=== PATIENT | female | born 1960 | race Caucasian/White ===

== ENCOUNTER → 2018-04-20 10:05 | Outpatient (CLI) | payer BC, SELFPAY ==
--- NOTE | 2018-04-20 | DI.MG.S_ITS ---
BILATERAL DIGITAL SCREENING MAMMOGRAM 3D/2D WITH CAD: 04/20/2018 CLINICAL: Routine screening. Comparison is made to exams dated: 08/25/2016 mammogram, 12/25/2014 mammogram, and 04/07/2008 mammogram - [facility]. The tissue of both breasts is heterogeneously dense. This may lower the sensitivity of mammography. Current study was also evaluated with a Computer Aided Detection (CAD) system. There is an irregular equal density asymmetry with an indistinct margin in the left breast at 6 o'clock posterior depth. No other significant masses, calcifications, or other findings are seen in either breast. IMPRESSION: INCOMPLETE: NEEDS ADDITIONAL IMAGING EVALUATION The irregular equal density asymmetry in the left breast is indeterminate. Mediolateral and spot compression views as well as additional views with possible ultrasound are recommended. This exam was interpreted at Station ID: [id number]. NOTE: For mammograms, a report in lay terms will be sent to the patient. Approximately 15% of breast malignancies will not be visualized mammographically. In the management of a palpable breast mass, a negative mammogram must not discourage biopsy of a clinically suspicious lesion. Electronically Signed By: Ventura cardenas/con:04/20/2018 12:46:13 letter sent: Additional Imaging Needed ACR BI-RADS Category 0: Incomplete 3340F
== END ==
DX: Z12.31 Encounter for screening mammogram for malignant neoplasm of breast (principal)
CPT/HCPCS: 77063; 77067

== ENCOUNTER 2018-05-09 09:10 | Emergency (ER) | payer BC, SELFPAY ==
[2018-05-09 09:17] VITALS: BMI 27.4
[2018-05-09 09:26] VITALS: BP 137/82; PULSE 74; RESP 16; TEMP 37.3; O2SAT 99; BMI 27.4
--- NOTE | 2018-05-09 09:31 | DI.RAD.S_ITS ---
PROCEDURE: XR KNEE RT 3V INDICATIONS: twisting fall TECHNIQUE: 3 views of the knee were acquired. COMPARISON: None. FINDINGS: Bones: No fractures or dislocations. No suspicious bony lesions. No patella subluxation. Mild tricompartment osteoarthritis is seen. Soft tissues: Small suprapatellar joint effusion is seen.. No suspicious soft tissue calcifications. IMPRESSION: Mild tricompartment osteoarthritis and small suprapatellar joint effusion. No gross acute right knee fracture or dislocation. Dictated by: Leo Peck M.D. on 05/09/2018 at 9:57 Approved by: Leo Peck M.D. on 05/09/2018 at 9:58
--- NOTE | 2018-05-09 09:47 | ED_ITS ---
HPI - Extremity Injury (Lower) General Chief Complaint: Extremity Injury, Lower Stated Complaint: Rt Knee pain, fell of horse yesterday Time Seen by Provider: 05/09/18 09:26 Source: patient Mode of arrival: ambulatory Limitations: no limitations History of Present Illness HPI Narrative: Patient is a 49-year-old female who presents with right knee pain. She had an ACL repair number of years ago. She said yesterday she was getting up for her she stepped on a rock she has history knee she has some lateral pain. She is able to walk on it difficulty. She is worried that her ACL might be torn. She has no numbness or tingling stable flex and extend without difficulty. She is also able to weight bear. MD complaint: knee injury Onset (ago): day(s) (1) Related Data Home Medications Medication Instructions Recorded Confirmed medroxyprogesterone [Depo-Provera] 200 mg IM #0 05/13/11 Previous Rx's Medication Instructions Recorded cyclobenzaprine 5 mg PO EVERY 8 HOURS WHEN N #30 08/12/16 tab estradiol 1 mg PO QDAY #90 tab 10/24/16 norethindrone (contraceptive) 0.35 mg PO QDAY #3 pac 10/24/16 Allergies Allergy/AdvReac Type Severity Reaction Status Date / Time No Known Drug Allergies Allergy Verified 05/09/18 09:17 Review of Systems Review of Systems GENERAL: Denies chills,fever HEENT: Denies throat pain RESPIRATORY: Denies dyspnea, cough, wheezing CARDIOVASCULAR: Denies chest pain, palpitations GASTROINTESTINAL: Denies nausea, vomiting MUSCULOSKELETAL: See HPI SKIN: No rash, no laceration, no pruritus NEUROLOGIC: Denies weakness, dizziness, headache, numbness 8 point review of systems is negative except for those stated above and HPI PFSH Medical History Healthy adult (Acute) Surgical History Status post anterior cruciate ligament surgery (Resolved) Status post anterior cruciate ligament surgery (Inactive) Status post delivery Social History Smoking Status: Never smoker Exam Initial Vital Signs Initial Vital Signs: Vital Signs Temperature 99.2 F 05/09/18 09:26 Pulse Rate 74 05/09/18 09:26 Respiratory Rate 16 05/09/18 09:26 Blood Pressure 137/82 05/09/18 09:26 Pulse Oximetry 99 05/09/18 09:26 GENERAL: Well-appearing, well-nourished and in no acute distress. CARDIOVASCULAR: peripheral pulses in tact, cap refill <2 sec RESPIRATORY: No respiratory distress, speaks in full sentences without difficulty EXTREMITIES: Normal range of motion, no clubbing or edema. Neurovascularly intact Right knee stable negative anterior-posterior drawer. Minimal lateral joint line tenderness no effusion no swelling of flex and extend without problem neurovascularly intact NEUROLOGICAL: Cranial nerves II through XII grossly intact. Normal gait and speech. SKIN: Warm, dry, no petechiae, no rashes or lesions. Course Orders Ordered: ED Orders 05/09/18 09:31 XR knee RT 3V Stat Vital Signs - 8 hr 05/09/18 09:26 Temperature 99.2 F Pulse Rate 74 Respiratory Rate 16 Blood Pressure 137/82 Pulse Oximetry 99 MDM - Extremity Injury (Lower) Imaging Data right knee x ray: Attestation: I personally reviewed and interpreted this imaging study as follows: My impression: negative no fracture Radiologist's impression: PROCEDURE: XR KNEE RT 3V INDICATIONS: twisting fall TECHNIQUE: 3 views of the knee were acquired. COMPARISON: None. FINDINGS: Bones: No fractures or dislocations. No suspicious bony lesions. No patella subluxation. Mild tricompartment osteoarthritis is seen. Soft tissues: Small suprapatellar joint effusion is seen.. No suspicious soft tissue calcifications. IMPRESSION: Mild tricompartment osteoarthritis and small suprapatellar joint effusion. No gross acute right knee fracture or dislocation. Dictated by: Leo Peck M.D. on 05/09/2018 at 9:57 MDM Narrative Medical decision making narrative: Patient already has a knee brace brace she is ambulatory. I recommended outpatient MRI if still having pain problems she does have a PCP. Discharge Plan Departure Patient Disposition: Home Clinical Impression: Strain of right knee Instructions: Knee Sprain Activity Restrictions/Additional Instructions: *You have been diagnosed with right knee sprain *What to do: At this time x-ray is negative. May require MRI if still having and swelling with your PCP *Continue to take medications as directed Motrin 800 mg every 8 hr if needed for pain and swelling *Follow up with your primary care provider in 2-3 days *Return to ER if you should have increasing pain, numbness, tingling or any new , worsening or concerning symptoms Prescriptions: No Action medroxyprogesterone [Depo-Provera] 400 MG/1 ML suspension 200 mg IM Qty: 0 RF: 0 cyclobenzaprine 5 MG tablet 5 mg PO EVERY 8 HOURS WHEN N Qty: 30 RF: 0 estradiol 1 MG tablet 1 mg PO QDAY Qty: 90 RF: 3 norethindrone (contraceptive) 0.35 MG tablet 0.35 mg PO QDAY Qty: 3 RF: 4
== END 2018-05-09 10:20 | disposition home or self-care (01) ==
PROVIDERS: Emergency Provider Emergency Medicine
DX: S86.911A Strain of unspecified muscle(s) and tendon(s) at lower leg level, right leg, initial encounter (principal); V80.010A Animal-rider injured by fall from or being thrown from horse in noncollision accident, initial encounter
CPT/HCPCS: 73562; 99282; 99283

== ENCOUNTER → 2018-05-14 10:22 | Outpatient (CLI) | payer BC, SELFPAY ==
--- NOTE | 2018-05-14 10:26 | DI.MG.S_ITS ---
UNILATERAL LEFT DIGITAL DIAGNOSTIC MAMMOGRAM 3D/2D WITH ADDITIONAL VIEWS: 05/14/2018 CLINICAL: Additional evaluation requested from prior study. Comparison is made to exams dated: 04/20/2018 mammogram, 08/25/2016 mammogram, and 12/25/2014 mammogram - [facility]. The tissue of left breast is heterogeneously dense. This may lower the sensitivity of mammography. The irregular asymmetry with an indistinct margin in the left breast at 6 o'clock posterior depth is not seen in additional views. No other significant masses or calcifications are seen in the breast. IMPRESSION: There is no mammographic evidence of malignancy. A 1 year screening mammogram is recommended. This exam was interpreted at Station ID: [id number]. NOTE: For mammograms, a report in lay terms will be sent to the patient. Approximately 15% of breast malignancies will not be visualized mammographically. In the management of a palpable breast mass, a negative mammogram must not discourage biopsy of a clinically suspicious lesion. Electronically Signed By: Chantal Guillen M.D. lk/:05/14/2018 11:01:51 letter sent: Normal Exam ACR BI-RADS Category 2: Benign Finding(s) 3342F
== END ==
PROVIDERS: Referring Provider Family Medicine
DX: R92.8 Other abnormal and inconclusive findings on diagnostic imaging of breast (principal)
CPT/HCPCS: 77065; G0279

== ENCOUNTER → 2020-06-16 09:47 | Outpatient (CLI) | payer BC, SELFPAY ==
--- NOTE | 2020-06-16 09:50 | DI.MG.S_ITS ---
BILATERAL DIGITAL SCREENING MAMMOGRAM 3D/2D WITH CAD: 06/16/2020 CLINICAL: Routine screening. Comparison is made to exams dated: 04/20/2018 mammogram, 08/25/2016 mammogram, 12/25/2014 mammogram, and 04/07/2008 mammogram - [facility]. The tissue of both breasts is heterogeneously dense. This may lower the sensitivity of mammography. Current study was also evaluated with a Computer Aided Detection (CAD) system. No significant masses, calcifications, or other findings are seen in either breast. There has been no significant interval change. IMPRESSION: NEGATIVE There is no mammographic evidence of malignancy. A 1 year screening mammogram is recommended. This exam was interpreted at Station ID: [id number]. NOTE: For mammograms, a report in lay terms will be sent to the patient. Approximately 15% of breast malignancies will not be visualized mammographically. In the management of a palpable breast mass, a negative mammogram must not discourage biopsy of a clinically suspicious lesion. Electronically Signed By: Tiago alarcon/con:06/18/2020 07:25:58 letter sent: Normal Exam ACR BI-RADS Category 1: Negative 3341F
== END ==
PROVIDERS: PCP Family Medicine; Referring Provider Family Medicine; Visit Provider Family Medicine
DX: Z12.31 Encounter for screening mammogram for malignant neoplasm of breast (principal)
CPT/HCPCS: 77063; 77067

== ENCOUNTER → 2021-07-20 08:56 | Outpatient (CLI) | payer BC, SELFPAY ==
--- NOTE | 2021-07-20 | DI.MG.S_ITS ---
BILATERAL DIGITAL SCREENING MAMMOGRAM 3D/2D WITH CAD: 07/20/2021 CLINICAL: Routine screening. Comparison is made to exams dated: 06/16/2020 mammogram, 05/14/2018 mammogram, 04/20/2018 mammogram, and 08/25/2016 mammogram - [facility]. The tissue of both breasts is heterogeneously dense. This may lower the sensitivity of mammography. Current study was also evaluated with a Computer Aided Detection (CAD) system. No significant masses, calcifications, or other findings are seen in either breast. There has been no significant interval change. IMPRESSION: NEGATIVE There is no mammographic evidence of malignancy. A 1 year screening mammogram is recommended. This exam was interpreted at Station ID: [id number]. NOTE: For mammograms, a report in lay terms will be sent to the patient. Approximately 15% of breast malignancies will not be visualized mammographically. In the management of a palpable breast mass, a negative mammogram must not discourage biopsy of a clinically suspicious lesion. Electronically Signed By: Chantal amador/con:07/22/2021 12:20:27 letter sent: Normal Exam ACR BI-RADS Category 1: Negative 3341F
== END ==
PROVIDERS: PCP Family Medicine; Referring Provider Family Medicine; Visit Provider Family Medicine
DX: Z12.31 Encounter for screening mammogram for malignant neoplasm of breast (principal)
CPT/HCPCS: 77063; 77067

== ENCOUNTER 2023-02-21 19:04 | Emergency (ER) | payer BC, SELFPAY ==
[2023-02-21 19:07] VITALS: BP 154/103; PULSE 101; RESP 16; TEMP 37.1; O2SAT 99; BMI 27.4
[2023-02-21] MEDS: PROPARACAINE 0.5% OPHTH SOL 1 DROPS EYE-RIGHT (19:22)
[2023-02-21] MEDS: FLUORESCEIN 1 MG STRIP EYE-RIGHT (19:22)
--- NOTE | 2023-02-21 20:23 | ED_ITS ---
HPI - Wound/Laceration General Chief Complaint: Wound/Laceration Stated Complaint: LAC above R/eye Time Seen by Provider: 02/21/23 20:22 Source: patient Mode of arrival: Ambulatory History of Present Illness HPI narrative: Patient is a healthy 62-year-old female who presents today with right eye laceration. She reports that she tripped over a log and then landed on a stick cutting her right eyelid. No double vision blurry vision. No loss of consciousness no headache no nausea vomiting. She is not on antiplatelet or anticoagulation medication. No neck pain. She does not wear corrective lenses, but does use reading glasses. Related Data Home Medications Medication Instructions Recorded Confirmed medroxyprogesterone 400 mg/mL 200 mg IM ##0 05/13/11 intramuscular suspension (Depo-Provera) Previous Rx's Medication Instructions Recorded cyclobenzaprine 5 mg tablet 5 mg PO EVERY 8 HOURS WHEN N #30 08/12/16 tabs estradiol 1 mg tablet 1 mg PO QDAY #90 tabs 10/24/16 norethindrone (contraceptive) 0.35 0.35 mg PO QDAY ##3 10/24/16 mg tablet Allergies Allergy/AdvReac Type Severity Reaction Status Date / Time No Known Drug Allergies Allergy Verified 05/09/18 09:17 Review of Systems Review of Systems ROS Unobtainable: All systems reviewed & are unremarkable except as noted in HPI and below Patient History Medical History Healthy adult Surgical History Status post anterior cruciate ligament surgery Status post anterior cruciate ligament surgery Status post delivery Social History Smoking Status: Never smoker Smoking Status: Never smoker Substance Use Type: does not use Exam Initial Vital Signs Initial Vital Signs: Vital Signs Temperature 98.8 F 02/21/23 19:07 Pulse Rate 101 H 02/21/23 19:07 Respiratory Rate 16 02/21/23 19:07 Blood Pressure 154/103 H 02/21/23 19:07 Pulse Oximetry 99 02/21/23 19:07 Oxygen Delivery Method Room Air 02/21/23 19:07 GENERAL: Well-appearing, well-nourished and in no acute distress. EYES: EOMI,CARLOS, right eyelid 2 cm laceration with flap like stellate laceration skin approximation no muscle involvement no adipose tissue exposed fascia only. Periorbital contusion is developing. No Pitocin no step-offs Right eye was treated with proparacaine, stained with fluorescein. No dye uptake. No foreign body. CARDIOVASCULAR: peripheral pulses in tact, cap refill <2 sec RESPIRATORY: No respiratory distress, speaks in full sentences without difficulty EXTREMITIES: Normal range of motion, no clubbing or edema. Neurovascularly intact NEUROLOGICAL: Cranial nerves II through XII grossly intact. Normal gait and speech. Family Services Specialist strength equal bilaterally SKIN: Warm, dry, no petechiae, no rashes or lesions. Small contusion right ring finger at DIP full range of motion. laceration as described above Procedures Laceration Repair Laceration 1: Site: face (right eyelid) Side (If applicable): right Size (cm): 2 Description: stellate and flap Depth: simple, single layer Local Anesthetic: lidocaine 1% and with epi Amount of anesthesia used (mL): 2 Pre-repair: wound explored, irrigated extensively and deep structures intact Skin layer closed with: other (chromic gut) Skin layer suture size: 5-0 Number of sutures: 5 Technique: simple, interrupted Course Orders Ordered: Discontinued Medications Fluorescein Sodium (Fluorescein 1 Mg Strip) 1 mg EYE-RIGHT NOW ONE Stop: 02/21/23 19:19 Last Admin: 02/21/23 19:22 Dose: 1 mg Documented By: MARY GRACE Proparacaine HCl (Proparacaine 0.5% Ophth Shanna) 1 drops EYE-RIGHT NOW ONE Stop: 02/21/23 19:19 Last Admin: 02/21/23 19:22 Dose: 1 drops Documented By: MARY GRACE Vital Signs Vital signs: Vital Signs - 8 hr 02/21/23 19:07 02/21/23 20:54 Temperature 98.8 F Pulse Rate 101 H 90 Respiratory Rate 16 16 Blood Pressure 154/103 H 156/96 H Pulse Oximetry 99 98 Oxygen Delivery Method Room Air Room Air MDM - Wound/Laceration MDM Narrative Medical decision making narrative: Patient offered x-ray of ring finger however she declined. Sutures easily placed with good skin approximation she does have some contusion forming around the right eye, however still able to open it. No proptosis no sign vulvar hematoma Discharge Plan Departure Patient Disposition: Home Clinical Impression: Eyelid laceration, right Instructions: DI for Laceration Repair Activity Restrictions/Additional Instructions: *You have been diagnosed with right eyelid laceration *What to do: At this time keep face clean and dry with soap and water. Sutures should dissolve in about 7-14 days on their own. Once they are resolve then you can apply antibiotic ointment 1-2 times daily. Expect to have swelling especially tomorrow morning when you wake up. Swelling should improve with an upright position and ice pack. May ice 20-30 minutes at a time as needed *Continue to take medications as directed Tylenol ibuprofen as needed for pain and swelling *Follow up with your primary care provider in 2-3 days or call [phone] *Return to ER if you should have increasing redness swelling drainage pain or any new, worsening or concerning symptoms Prescriptions: No Action medroxyprogesterone [Depo-Provera] 400 MG/1 ML suspension 200 mg IM Qty: 0 cyclobenzaprine 5 MG tablet 5 mg PO EVERY 8 HOURS WHEN N Qty: 30 0RF estradiol 1 MG tablet 1 mg PO QDAY Qty: 90 3RF norethindrone (contraceptive) 0.35 MG tablet 0.35 mg PO QDAY Qty: 3 4RF Referrals: Anastasia Diaz DO [Primary Care Provider] - Stand Alone Forms: Patient Portal/API
[2023-02-21 20:54] VITALS: BP 156/96; PULSE 90; RESP 16; O2SAT 98
== END 2023-02-21 21:04 | disposition home or self-care (01) ==
PROVIDERS: Emergency Provider Emergency Medicine; PCP Family Medicine
DX: S01.111A Laceration without foreign body of right eyelid and periocular area, initial encounter (principal); W01.0XXA Fall on same level from slipping, tripping and stumbling without subsequent striking against object, initial encounter; Y93.9 Activity, unspecified
CPT/HCPCS: 12011; 99283